=== PATIENT | male | born 1970 | race African-American/Black ===

== ENCOUNTER 2023-07-14 09:33 | Emergency (ER) | payer SELFPAY ==
[~2023-07-14] VITALS: Ht 177.8 cm; Wt 68.0 kg
[2023-07-14 09:37] VITALS: TEMP 97.8; O2SAT 97
[2023-07-14] MEDS ORDERED: NALO4SPR BOTHNSTRLS (10:16)
[2023-07-14 11:35] VITALS: BP 135/75; PULSE 90; RESP 17
== END 2023-07-14 11:37 | disposition home or self-care (01) ==
LOC: ER 10:13
DX: T50.7X1A Poisoning by analeptics and opioid receptor antagonists, accidental (unintentional), initial encounter (principal); X58.XXXA Exposure to other specified factors, initial encounter
CPT/HCPCS: 99283

== ENCOUNTER 2023-12-13 14:18 | Emergency (ER) | payer SELFPAY ==
[~2023-12-13] VITALS: Ht 177.8 cm; Wt 84.0 kg
[~2023-12-13 14:18] MED LIST: NALO4SPR BOTHNSTRLS
[2023-12-13 14:40] VITALS: BP 166/102; PULSE 88; RESP 19; TEMP 98.6; O2SAT 97
[2023-12-13 16:17] LABS: BASOPHILS % 0.4 % (0.0-2.0); EOSINOPHILS % 0.3 % (0.0-5.0); HEMATOCRIT. 41.3 % (42.0-52.0); HEMOGLOBIN. 13.5 g/dL (14.0-18.0); LYMPHOCYTES % 10.4 % (20.0-50.0); MEAN CORPUSCULAR HEMOGLOBIN 29.9 pg (28.0-32.0); MEAN CORPUSCULAR HGB CONC 32.5 g/dL (31.0-37.0); MEAN CORPUSCULAR VOLUME 91.8 fL (80.0-94.0); MEAN PLATELET VOLUME 8.3 fl (7.4-10.4); MONOCYTES % 8.9 % (2.0-8.0); PLATELET 258 x1000/uL (130-400); RED CELL DISTRIBUTION WIDTH 15.4 % (11.6-14.6); WHITE BLOOD COUNT 7.2 x1000/uL (4.5-11.0)
[2023-12-13 16:54] LABS: ALANINE AMINOTRANSFERASE 17 IU/L (10-49); ALBUMIN 4.5 g/dL (3.2-4.8); ASPARTATE AMINOTRANSFERASE 33 IU/L (<34); BILIRUBIN TOTAL 0.7 mg/dL (0.1-1.0); CALCIUM 9.4 mg/dL (8.7-10.4); CARBON DIOXIDE 23 mEq/L (21-32); CHLORIDE 100 mEq/L (98-107); GLUCOSE 81 mg/dL (70-105); POTASSIUM 3.8 mEq/L (3.5-5.1); PROTEIN TOTAL 7.7 g/dL (6.0-8.3); SODIUM 134 mEq/L (136-145); UREA NITROGEN BLOOD 10 mg/dL (9-23)
[2023-12-13 17:00] LABS: ETHANOL BLOOD < 10 mg/dL (<10)
[2023-12-13 20:04] LABS: CLARITY URINE TURBID (CLEAR); COLOR URINE YELLOW (YELLOW); GLUCOSE URINE NEGATIVE (NEGATIVE); KETONES URINE TRACE (NEGATIVE); LEUKOCYTE ESTERASE URINE NEGATIVE (NEGATIVE); NITRITE URINE NEGATIVE (NEGATIVE); OCCULT BLOOD URINE TRACE (NEGATIVE); PH URINE 5.5 (4.5-8.0); PROTEIN URINE 1+ (NEGATIVE); SPECIFIC GRAVITY URINE 1.019 (1.005-1.030)
[2023-12-13 20:16] LABS: *AMPHETAMINES SCREEN URINE NEGATIVE (NEGATIVE); *BARBITURATES SCREEN URINE NEGATIVE (NEGATIVE); *BENZODIAZEPINES SCREEN URINE NEGATIVE (NEGATIVE); *COCAINE SCREEN URINE PRESUMPTIVE POSITIVE (NEGATIVE); BACTERIA URINE 3+; CANNABINOID URINE SCREEN NEGATIVE (NEGATIVE); ECSTASY MDMA SCREEN URINE NEGATIVE (NEGATIVE); METHADONE URINE SCREEN Neg (NEGATIVE); OPIATES URINE SCREEN NEGATIVE (NEGATIVE); PHENCYCLIDINE URINE SCREEN NEGATIVE (NEGATIVE); SQUAMOUS EPITHELIAL CELL URINE FEW /lpf (RARE/1+)
[2023-12-13 20:17] LABS: AMORPHOUS SEDIMENT URINE 1+ /lpf; URIC ACID CRYSTALS URINE 2+ /lpf; WBC URINE 0-2 /hpf (0-2)
== END 2023-12-13 19:06 | disposition home or self-care (01) ==
LOC: ER 15:50
DX: R41.82 Altered mental status, unspecified (principal); I10 Essential (primary) hypertension; F12.10 Cannabis abuse, uncomplicated; Z59.00 Homelessness unspecified
CPT/HCPCS: 36415; 80053; 80305; 80320; 81003; 85025; 99283; G0480